=== PATIENT | female | born 1960 ===

== ENCOUNTER 2022-10-26 19:09 | Emergency (ER) | payer OTHER ==
[~2022-10-26] VITALS: Ht 160 cm; Wt 63.5 kg
== END 2022-10-26 22:46 | disposition home or self-care (01) ==
LOC: ER 19:09
DX: B02.9 Zoster without complications (principal); Z88.8 Allergy status to other drugs, medicaments and biological substances; Z91.013 Allergy to seafood

== ENCOUNTER 2022-10-27 14:59 | Emergency (ER) | payer OTHER ==
[~2022-10-27] VITALS: Ht 167.6 cm; Wt 63.5 kg
== END 2022-10-27 16:21 | disposition home or self-care (01) ==
LOC: ER 14:59
DX: B02.9 Zoster without complications (principal); E11.9 Type 2 diabetes mellitus without complications